=== PATIENT | female | born 1975 | race Caucasian/White ===

== ENCOUNTER → 2017-03-08 | Day surgery (SDC) | payer OTHER ==
[2017-02-18 12:42] VITALS: Ht 157.5 cm; Wt 84.1 kg
[~2017-03-08] VITALS: Ht 157.5 cm; Wt 84.1 kg
[~2017-03-08] MED LIST: ASPCH81X PO; ATROPINE SULFATE 0.1 MG/ML 5ML SYR IV PRN; CEFAZOLIN 2000MG IV PUSH 10 ML IV SCH; CHLO1TAB70 PO; EpHEDrine SULFATE INJ 50 MG/ML AMP IV PRN; EpHEDrine SULFATE INJ 50 MG/ML AMP ONE; EpINEphrine HCL INJ 1 MG/ML 5ML SYRINGE ONE; HYDROmorphone INJ 0.5 MG/0.5 ML SYR ONE; HYDROmorphone INJ 1 MG/ML SYR ONE; HYDROmorphone INJ 2 MG/ML SYR/VIAL IV PRN; KETOROLAC TROMETHAMINE 30 MG/ML VIAL ONE; LACTATED RINGER'S 1000ML 1,000 ML IV SCH; LIDOCAINE HCL 1% MPF 2 ML VIAL ONE; LIDOCAINE HCL 2% 2 ML VIAL (20MG/ML) ONE; MAGN400T6 PO; MIDAZOLAM HCL 1 MG/ML 2ML VIAL ONE; NAPR1TAB9 PO; NARA1TAB PO; NF656; NURSING VERBAL MED ORDER ONE; ONDANSETRON INJ 2 MG/ML 2 ML VIAL IV PRN; ONDANSETRON INJ 2 MG/ML 2 ML VIAL ONE; OXYCODONE/ACETAMINOPHEN 5-325 TAB PO PRN; PHENYLEPHRINE 100MCG/ML 5ML SYR IV PRN; PROM25TA9 PO; PROPOFOL IV EMULSION 10 MG/ML 20 ML VIAL IV ONE; PSYL48.59 PO; ROPIVACAINE 0.5% 5 MG/ML 30 ML VIAL ONE; SODIUM CHLORIDE 0.9% 1000ML 1,000 ML IV SCH; SODIUM CHLORIDE 0.9% INJ 10 ML VIAL ONE; VITAMIN B2 PO; VNTHFA/IN INH
--- NOTE | 2017-03-08 06:55 | History & Physical Bridge Note ---
H&P Re-Evaluation Bridge Note: I have examined the patient, reviewed the History & Physical and in the interval since the performance of the History & Physical I have noted the following changes of clinical significance: consent reviewed.No changes noted
--- NOTE | 2017-03-08 06:56 | Discharge Instructions ---
Discharge Instructions Date of Service Mar 08, 2017. Visit Reason for Visit: Right Sholder Calcific Tendonitis With Impingement Discharge Discharge Diagnosis / Problem: same Discharge Goals Goal(s): Decrease discomfort, Improve function Medications Stopped Medications Name(s): ALESAMUEL STOPPED ON TUESDAY Restart Stopped Medication(s): use scripts as directed Activity Recommendations Activity Limitations: as noted below Lifting Limitations: until after follow-up appointment Exercise/Sports Limitations: until after follow-up appointment May Resume Sexual Activity: when tolerated Shower/Bathe: keep incision dry Driving or Machine Use: Anesthesia . Post Anesthesia Instructions: If you have had General Anesthesia or IV Sedation: * Do not drive today. * Resume driving when surgeon permits. * Do not make important decisions or sign legal documents today. * Call surgeon for: 1. Temperature elevations greater than 101 degrees F. 2. Uncontrollable pain. 3. Excessive bleeding. 4. Persistent nausea and vomiting. 5. Medication intolerance (nausea, vomiting or rash). * For nausea and vomiting use only clear liquids such as: tea, soda, bouillon until nausea subsides, then gradually increase diet as tolerated. * If you have any concerns or questions, call your surgeon's office. If physician is unavailable and it is an emergency, call 911 or go to the nearest emergency room. . Instructions / Follow-Up Instructions / Follow-Up The following are instructions to follow after "Shoulder Surgery" including, Acromioplasty, Rotator Cuff Repair and Instability Surgery ACTIVITY RECOMMENDATIONS: * Minimize activity after surgery. * No excessive walking, jogging, sports or laboring. * Return to activity is individualized depending on the patient and type of surgery. * Driving is not permitted until at least your first post operative visit. Please ask your doctor when it is safe to resume driving. * Expect increased discomfort with increased activity. Continue to ice the shoulder as needed. SCHOOL/WORK RECOMMENDATIONS: * You may return to sedentary work or school when you are feeling more comfortable. This is usually 3-7 days after surgery. MEDICATIONS: * You will have a prescription for pain medication and an anti-inflammatory medication after surgery. * Use the pain medication for severe pain and the anti-inflammatory for less severe pain. Once the pain medication has run out, try to use the anti-inflammatory medication. If this is not effective, contact the office for assistance. * The pain medication may cause nausea, constipation and drowsiness. You should see how they affect you before driving or similar activity. * The anti-inflammatory medication may cause stomach upset and bleeding. If this occurs let your doctor know immediately . * Take a stool softener like Colace or a laxative like Senokot to prevent constipation. DIET: * Resume previous diet. SPECIAL CARE: ICE: You have the option of an ice cooler, gel packs or ice bags. * If you have an ice cooler, refer to the instructions for that device. The ice cooler may be used continuously. * If you do not have an ice cooler, you will need to use ice bags or gel packs. Do not apply ice directly to the skin. Use a thin dressing or yolanda shirt between the skin and ice bag. Apply ice for 20-30 minutes and repeat every 2-4 hours. This is especially important for the first 7-10 days after surgery. Once the pain improves, use ice as needed. ELEVATION: * You may be more comfortable sleeping in an upright position. Use the sling to elevate your arm. DRESSING: * Your dressing will be changed at your first therapy appointment approximately 4-5 days after surgery. Band-aids, tape strips or gauze may be applied. You may then change your dressing daily. * Reapply dressing followed by the EBIce cooling pad (if chosen) and then the sling. * Always wash your hands prior to touching the incision area. * Once the stitches are removed, you may leave the wound open to air or cover with gauze. * Expect some bloody drainage for the first few days after surgery. * Leave the tape strips, if present, in place for 5-7 days. * Band-aids and gauze may be changed daily. * There may be a gauze pad in your armpit area. This can be changed daily or replaced by a dry washcloth. SLING/BRACE: * You will need to use a sling or brace after surgery. The length of time the sling is used is dependent upon the type of surgery performed. * Arthroscopic Acromioplasty requires use of the sling for 2-4 weeks for comfort. * Labral procedures and Rotator Cuff Repairs require use of the sling for a longer period of time. Please check with your doctor prior to discontinuing the sling. BATHING: * You may shower or sponge-bathe immediately after surgery. The post operative shoulder dressing is mostly water-tight. You may shower right over this dressing, but be reasonably careful not to get the gauze or incision wet. * Once the dressing has been changed on the fourth or fifth day after surgery, you may shower and get the incision wet. * Wash with regular soap and water. * Do not bathe (submerge the incision), soak, swim or use a hot tub until the incision is completely healed over with normal skin and the doctor has given the OK to proceed. * There is no need to apply any ointments, powders or salves to your incision. * Do not apply alcohol or hydrogen peroxide directly to the incision. * Diluted peroxide (50:50 mixture with sterile saline) may be used to clean dried blood from around the incision area. THERAPY: * You will begin therapy four or five days after surgery. * Organized therapy with the therapist is important for the first 2-4 months after surgery depending on the type of procedure. During that time you will attend therapy 1-3 times per week. * You will also need to do daily exercises for range of motion and strength as instructed. * Patients who have a Capsular Shift Procedure will need to abide by temporary range of motion limitations. * Patients having Rotator Cuff Surgery are not allowed to actively lift their arms until 4-6 weeks after surgery. * Please check with your doctor regarding appropriate motion restrictions. FOLLOW UP VISIT: * If not already scheduled, please call the office at to schedule a follow-up appointment for 10 days after surgery and monthly thereafter. Diet Recommendations Recommended Home Diet: resume previous diet Procedures Procedures Performed: see op note Pending Studies Studies pending at discharge: no Medical Emergencies . Who to Call and When: Medical Emergencies: If at any time you feel your situation is an emergency, please call 911 immediately. . Non-Emergent Contact Non-Emergency issues call your: Specialist Call Non-Emergent contact if: wound has increased drainage, wound has increased redness, wound has increased pain . . "Provider Documentation" section prepared by Lee Lopez. .
--- NOTE | 2017-03-08 09:11 | [facility] Post Operative Brief Note ---
Immediate Operative Summary Operative Date Mar 08, 2017. Pre-Operative Diagnosis Right Shoulder Calcific Tendonitis with Impingement Post-Operative Diagnosis same Procedure(s) Performed Right Shoulder Arthroscopic Rotator Cuff Repair, Subacromial Decompression,small rotator cuff repair Surgeon Dr Lopez Fish Packer Surgeon(s) JOSE MANUEL Tang Estimated Blood Loss Trace Findings small cuff tear/impingement Fluids (cc crystalloids) 700cc Specimens none Drains none Anesthesia LMA/block Complication(s) None Disposition Recovery Room / PACU
--- NOTE | 2017-03-08 09:16 | OPERATIVE REPORT ---
DATE OF OPERATION: 03/08/2017 SURGEON: Lee Lopez MD SURFACE ROOM SHOP OPTICIAN: Lj Humphreys PA-C. No resident or fellow available. PREOPERATIVE DIAGNOSES: Impingement syndrome, right shoulder with rotator cuff calcific tendinopathy and tear. POSTOPERATIVE DIAGNOSES: Impingement syndrome, right shoulder with rotator cuff calcific tendinopathy and tear. OPERATION PERFORMED: 1. Exam under anesthesia. 2. Diagnostic arthroscopy. 3. Arthroscopic small rotator cuff repair. 4. Arthroscopic subacromial decompression. PERIOPERATIVE SITUATION: Medically cleared female with intractable shoulder pain with physical exam and x-ray consistent with tendinopathy. Physical examination revealed no instability, had positive impingement findings. DESCRIPTION OF PROCEDURE: The patient appropriately identified, site verified, consent verified, 2 grams of Ancef confirmed as being given. The right shoulder was examined revealing no instability. She was then sterilely prepped and draped in usual routine fashion in the beach chair position. A posterolateral portal made 2 cm medial and inferior to posterolateral tip of the acromion. Inspection of the joint revealed no immediate pathology and anterior portal was then made and everything was assessed. The labrum had a type 1 SLAP area which was debrided. The subscapularis was intact. There was a high grade partial thickness tear of the supraspinatus insertion. This was debrided. There was no other additional findings noted. There was no articular disease. Subacromial space was then entered. A bursectomy performed. The tendon was palpated and the area of suspicion identified. The scope was then placed back in the shoulder and needle placed through the area with a PDS suture and then looked in the bursa and was identified and then once it was lightly debrided, there was a full thickness tear. The suture was removed obviously in order not to have any stay in the joint. Once the tendon was debrided, it was about a cm in length. The insertion site was then debrided of all soft tissue and anchor site punch hole made there. Two sutures placed through the tendon using the scorpion shuttled anteriorly the first one and then the second suture placed and the first suture pulled back through the cannula and the anchor 4.75 SwiveLock placed that was made out of PEEK and excellent repair was obtained. There was no retraction with range of motion. The subacromial decompression was then assessed from the lateral portal. There was good flattening and decompression. The AC joint was not touched. The biceps tendon was left alone. The procedure was then terminated. All instruments and fluid removed. The portals closed with 4-0 nylon, dressed with Xeroform, 4 x 4 gauze, ABD pads and Ioban dressing. Estimated blood loss trace. Crystalloid 700 mL. SUMMARY OF IMPLANTS: PEEK SwiveLock 4.75 x 19.1 and 2 scorpion loop sutures. ESTIMATED BLOOD LOSS: Trace. FLUIDS: Crystalloid 700. DVT PROPHYLAXIS: Aspirin. I attest to the content of the Intraoperative Record and any orders documented therein. Any exception s are noted below.
[2017-03-08 10:23] VITALS: TEMP 36.9
[2017-03-08 10:51] VITALS: BP 124/81; O2SAT 98
--- NOTE | 2017-03-08 10:55 | Anesthesia Progress Nt - [facility] ---
Anesthesia Post Op Note Date & Time Mar 08, 2017 at 10:55 Vital Signs Pain Intensity: 0 Vital Signs Past 12 Hours Date Time Temp Pulse Resp B/P (MAP) Pulse Ox O2 Delivery O2 Flow Rate FiO2 03/08/17 10:51 74 20 124/81 (95) 98 Room Air 03/08/17 10:23 36.9 69 20 119/83 (95) 96 Room Air 03/08/17 10:13 76 26 03/08/17 10:13 76 26 98 03/08/17 10:11 107/65 03/08/17 10:08 55 15 100 03/08/17 10:08 37.2 61 16 117/82 99 Room Air 03/08/17 10:08 60 15 03/08/17 10:06 117/82 03/08/17 10:03 79 15 100 03/08/17 10:03 75 15 03/08/17 10:02 54 12 100 03/08/17 10:02 53 12 03/08/17 10:01 114/65 03/08/17 09:57 69 20 100 03/08/17 09:57 72 20 03/08/17 09:56 113/78 03/08/17 09:52 55 9 03/08/17 09:52 58 9 100 03/08/17 09:51 115/66 03/08/17 09:51 115/66 03/08/17 09:50 88 13 100 03/08/17 09:50 68 13 03/08/17 09:49 55 14 03/08/17 09:49 57 14 100 03/08/17 09:46 108/65 03/08/17 09:46 108/65 03/08/17 09:45 71 17 03/08/17 09:45 65 17 100 03/08/17 09:44 65 16 03/08/17 09:44 68 16 100 03/08/17 09:41 120/72 03/08/17 09:41 120/72 03/08/17 09:40 80 21 03/08/17 09:40 81 21 100 03/08/17 09:39 70 17 03/08/17 09:39 69 17 100 03/08/17 09:36 117/68 03/08/17 09:36 117/68 03/08/17 09:35 62 12 03/08/17 09:35 65 12 100 03/08/17 09:34 52 14 100 03/08/17 09:34 52 14 03/08/17 09:31 118/73 03/08/17 09:31 118/73 03/08/17 09:30 61 15 100 03/08/17 09:30 61 15 03/08/17 09:29 60 16 100 03/08/17 09:29 59 16 03/08/17 09:26 110/65 03/08/17 09:26 110/65 03/08/17 09:25 86 19 03/08/17 09:25 89 19 100 03/08/17 09:24 75 23 100 03/08/17 09:24 78 23 03/08/17 09:21 118/72 03/08/17 09:21 118/72 03/08/17 09:20 80 15 03/08/17 09:20 84 15 100 03/08/17 09:19 84 19 03/08/17 09:19 93 19 98 03/08/17 09:16 123/78 03/08/17 09:16 123/78 03/08/17 09:15 78 100 03/08/17 09:15 78 03/08/17 09:15 36.5 77 12 123/78 100 Diffusion Mask 6 03/08/17 08:04 0 03/08/17 07:59 69 15 100 03/08/17 07:59 70 03/08/17 07:58 62 03/08/17 07:58 60 21 100 03/08/17 07:57 58 20 100 03/08/17 07:57 59 03/08/17 07:56 120/88 03/08/17 07:54 55 0 100 03/08/17 07:54 61 03/08/17 07:53 64 03/08/17 07:53 65 14 100 03/08/17 07:52 63 9 100 03/08/17 07:52 62 03/08/17 07:51 112/73 03/08/17 07:49 60 32 100 03/08/17 07:49 63 03/08/17 07:48 55 100 03/08/17 07:48 56 03/08/17 07:47 62 27 100 03/08/17 07:47 60 03/08/17 07:46 79 21 112/99 100 10/31/17 07:46 78 03/08/17 07:45 53 03/08/17 07:45 52 9 100 03/08/17 07:44 54 10 100 03/08/17 07:44 55 03/08/17 07:43 53 12 100 03/08/17 07:43 57 03/08/17 07:42 104/85 03/08/17 07:40 66 18 98 03/08/17 07:40 65 03/08/17 07:39 68 15 100 03/08/17 07:39 67 03/08/17 07:38 52 03/08/17 07:38 56 8 100 03/08/17 07:37 106/66 03/08/17 07:34 52 9 100 03/08/17 07:34 56 03/08/17 07:33 53 03/08/17 07:33 55 9 100 03/08/17 07:32 60 03/08/17 07:32 69 28 100 03/08/17 07:31 122/75 03/08/17 07:28 54 03/08/17 07:28 58 0 100 03/08/17 07:27 66 03/08/17 07:27 64 12 100 03/08/17 07:27 64 12 100 03/08/17 07:27 66 03/08/17 07:26 108/75 03/08/17 07:25 58 17 100 03/08/17 07:25 59 03/08/17 07:24 72 03/08/17 07:24 74 10 100 03/08/17 07:21 119/76 03/08/17 07:19 59 6 100 03/08/17 07:19 62 03/08/17 07:18 59 12 100 03/08/17 07:18 58 03/08/17 07:16 119/81 03/08/17 07:13 64 5 100 03/08/17 07:13 61 03/08/17 07:12 119/72 03/08/17 07:10 64 0 100 03/08/17 07:10 62 03/08/17 07:08 157/72 03/08/17 07:05 61 0 03/08/17 07:00 0 03/08/17 06:35 36.9 92 22 110/75 (87) 100 Room Air Notes Mental Status: alert / awake / arousable, participated in evaluation Pt Amnestic to Procedure: Yes Nausea / Vomiting: adequately controlled Pain: adequately controlled Airway Patency, RR, SpO2: stable & adequate BP & HR: stable & adequate Hydration State: stable & adequate Anesthetic Complications: no major complications apparent
--- NOTE | 2017-03-08 11:47 | [facility] Operative Report ---
Operative Report Operative Date Mar 08, 2017. Pre-Operative Diagnosis Right Shoulder Calcific Tendonitis with Impingement Post-Operative Diagnosis same Procedure(s) Performed Right Shoulder Arthroscopic Rotator Cuff Repair, Subacromial Decompression,small rotator cuff repair Surgeon Dr Lopez Drivability Technician Surgeon(s) JOSE MANUEL Tang Estimated Blood Loss Trace Findings Right shoulder subacromial impingement with rotator cuff tear Fluids (cc crystalloids) 700cc Specimens none Drains none Complication(s) None Disposition Recovery Room / PACU Indications This 41-year-old white female presented to the office with complaints of right shoulder pain. She had tried conservative care measures without success. She elected to proceed with surgical intervention after being educated about potential risks and outcomes. Reoperative imaging was obtained. She was unable to obtain an MRI secondary to an implanted bowel and bladder stimulator. Description of Procedure Patient was administered a regional block and then taken to the operating room where she was administered general anesthesia. She was prepped and draped in usual sterile fashion. Please see Dr. Lopez's operative report for specifics of the procedure. I was present for the entire case from initial patient positioning through final wound closure. Assistance was provided in patient positioning, arthroscopy, hardware placement, and final wound closure. Patient was taken to the recovery room in satisfactory condition. I attest to the content of the Intraoperative Record and any orders documented therein. Any exceptions are noted below.
== END | disposition home or self-care (01) ==
LOC: X.SURG 06:15
PROVIDERS: ATTEND Physical Medicine & Rehabilitation Sports Medicine
DX: M75.111 Incomplete rotator cuff tear or rupture of right shoulder, not specified as traumatic (principal); M75.31 Calcific tendinitis of right shoulder; M75.41 Impingement syndrome of right shoulder; Z85.41 Personal history of malignant neoplasm of cervix uteri; Z79.899 Other long term (current) drug therapy; Z87.891 Personal history of nicotine dependence

== ENCOUNTER → 2017-04-18 | Outpatient (CLI) | payer OTHER ==
[~2017-04-18] MED LIST changes: -ATROPINE SULFATE 0.1 MG/ML 5ML SYR IV PRN; -CEFAZOLIN 2000MG IV PUSH 10 ML IV SCH; -EpHEDrine SULFATE INJ 50 MG/ML AMP IV PRN; -EpHEDrine SULFATE INJ 50 MG/ML AMP ONE; -EpINEphrine HCL INJ 1 MG/ML 5ML SYRINGE ONE; -HYDROmorphone INJ 0.5 MG/0.5 ML SYR ONE; -HYDROmorphone INJ 1 MG/ML SYR ONE; -HYDROmorphone INJ 2 MG/ML SYR/VIAL IV PRN; -KETOROLAC TROMETHAMINE 30 MG/ML VIAL ONE; -LACTATED RINGER'S 1000ML 1,000 ML IV SCH; -LIDOCAINE HCL 1% MPF 2 ML VIAL ONE; -LIDOCAINE HCL 2% 2 ML VIAL (20MG/ML) ONE; -MIDAZOLAM HCL 1 MG/ML 2ML VIAL ONE; -NURSING VERBAL MED ORDER ONE; -ONDANSETRON INJ 2 MG/ML 2 ML VIAL IV PRN; -ONDANSETRON INJ 2 MG/ML 2 ML VIAL ONE; -OXYCODONE/ACETAMINOPHEN 5-325 TAB PO PRN; -PHENYLEPHRINE 100MCG/ML 5ML SYR IV PRN; -PROPOFOL IV EMULSION 10 MG/ML 20 ML VIAL IV ONE; -ROPIVACAINE 0.5% 5 MG/ML 30 ML VIAL ONE; -SODIUM CHLORIDE 0.9% 1000ML 1,000 ML IV SCH; -SODIUM CHLORIDE 0.9% INJ 10 ML VIAL ONE
== END | disposition home or self-care (01) ==
LOC: C.RDSM 13:50
PROVIDERS: ATTEND Physical Medicine & Rehabilitation Sports Medicine
DX: M75.31 Calcific tendinitis of right shoulder (principal)